=== PATIENT | male | born 1970 | race African-American/Black ===

== ENCOUNTER 2023-03-22 07:56 | Emergency (ER) | payer OTHER, BC ==
[2023-03-22] MEDS ORDERED: Ibuprofen 200 MG TAB ONE (08:50)
== END 2023-03-22 09:10 | disposition home or self-care (01) ==
LOC: CSHERS 07:56
DX: S93.602A Unspecified sprain of left foot, initial encounter (principal); I10 Essential (primary) hypertension; V89.2XXA Person injured in unspecified motor-vehicle accident, traffic, initial encounter